=== PATIENT | female | born 1945 | race Caucasian/White ===

== ENCOUNTER 2020-06-08 13:04 | Inpatient (IN) | payer MEDICARE, BC ==
--- NOTE | 2020-06-08 13:46 | EDM.PDOC ---
ED HPI GENERAL MEDICAL PROBLEM - General Stated Complaint: SOB COPD Time Seen by Provider: 06/08/20 13:46 Source of Information: Reports: Patient History Limitations: Reports: No Limitations - History of Present Illness INITIAL COMMENTS - FREE TEXT/NARRATIVE: 74-year-old female who reports that she had some increased cough and chest congestion yesterday and she felt that it was most probably due to the humidity in the air and she seemed to rest okay last night but when she awoke this morning she was feeling increasing air hunger with diaphoresis. He also had some left-sided chest pain that was dull and did not seem to be exacerbated by either palpation or deep breathing. She had nausea with vomiting 1. She states that this feels very similar to when she had a left-sided pneumothorax on 2 other occasions. Her air hunger is not improving. It actually appears to be worsening with time. The pain in her chest is rated as 4/10. She has some mild nausea now. She has had no fevers or chills. She has had no nasal congestion. She had been eating and drinking normally yesterday. She also noted increased weakness today. No hemoptysis. No trouble swallowing. There are no other associated signs or s ymptoms. There are no other modifying factors. 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.) Left Upper Chest Pain Score (Numeric/FACES): 4 - Related Data Allergies Allergy/AdvReac Type Severity Reaction Status Date / Time hydralazine [Hydralazine] Allergy UNKNOWN Verified 05/10/16 16:57 prochlorperazine edisylate Allergy UNKNOWN Verified 05/10/16 16:57 [From Compazine] prochlorperazine maleate Allergy UNKNOWN Verified 05/10/16 16:57 [From Compazine] quinine [Quinine] Allergy UNKNOWN Verified 05/10/16 16:57 Home Meds: Home Meds Diltiazem [Cardizem CD] 240 mg PO DAILY 11/15/13 [History] Sertraline HCl [Zoloft] 200 mg PO DAILY 11/15/13 [History] Levothyroxine 225 mcg PO MOTUWETHFRSA 10/01/14 [History] Albuterol [Proair HFA] 2 puff INH Q4H PRN 05/10/16 [History] Budesonide/Formoterol [Symbicort 160-4.5 MCG] 2 puff INH BID 05/10/16 [History] Losartan [Cozaar] 100 mg PO DAILY 06/08/20 [History] Tiotropium [Spiriva HandiHaler] 18 mcg INH DAILY 06/08/20 [History] Vit C/E/Zn/Coppr/Lutein/Zeaxan [Preservision Areds 2 Softgel] 1 cap PO DAILY 06/08/20 [History] Past Medical History HEENT History: Reports: Cataract, Macular Degeneration, Other (See Below) Other HEENT History: WEARS EYEGLASSES. Bilateral cataracts Cardiovascular History: Reports: Hypertension Respiratory History: Reports: COPD, Pulmonary Fibrosis Other Respiratory History: COLLAPSED LUNG IN 2013, COLLAPSED LUNG 05/10/16 Genitourinary History: Reports: Urinary Incontinence, Other (See Below) Other Genitourinary History: Stress incontinence Psychiatric History: Reports: Depression Endocrine/Metabolic History: Reports: Hypothyroidism Oncologic (Cancer) History: Reports: Breast, Thyroid - Infectious Disease History Infectious Disease History: Reports: Chicken Pox, Measles, Mumps, Scarlet Fever - Past Surgical History HEENT Surgical History: Reports: Cataract Surgery Respiratory Surgical History: Reports: Other (See Below) (Left chest tubes 2) GI Surgical History: Reports: Appendectomy, Colon (Colectomy for diverticulitis) Female Surgical History: Reports: Hysterectomy, Mastectomy (Left mastectomy with breast reconstruction following this.) Endocrine Surgical History: Reports: Thyroidectomy Social & Family History - Family History HEENT: Reports: None Cardiac: Reports: Bypass Respiratory: Reports: COPD GI: Reports: Other (See Below) Other GI Family History: [place]-rectal cancer-brother : Reports: Other (See Below) Other Family History: Bladder cancer-brother OBGYN: Reports: None Oncologic: Reports: Bladder, Colon - Tobacco Use Smoking Status *Q: Unknown Ever Smoked (Nonsmoker.) - Alcohol Use Alcohol Use History: Yes Alcohol Use Frequency: Daily (1 drink daily.) - Living Situation & Occupation Occupation: Retired Social History Comment: She reports that 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 ED ROS GENERAL - Review of Systems Review Of Systems: See Below Constitutional: Reports: Malaise, Weakness, Diaphoresis HEENT: Reports: No Symptoms Respiratory: Reports: Shortness of Breath, Cough. Denies: Hemoptysis Cardiovascular: Reports: Chest Pain, Lightheadedness GI/Abdominal: Reports: Nausea, Vomiting (Vomiting 1) : Reports: No Symptoms Musculoskeletal: Reports: No Symptoms Skin: Reports: No Symptoms Neurological: Reports: No Symptoms Psychiatric: Reports: No Symptoms Hematologic/Lymphatic: Reports: No Symptoms Immunologic: Reports: No Symptoms ED EXAM, GENERAL - Physical Exam Exam: See Below Exam Limited By: No Limitations General Appearance: Alert, WD/WN, Moderate Distress (Appears to be somewhat dyspneic. Speaking in full sentences and is alert, appropriate and interactive.) Eye Exam: Bilateral Eye: EOMI, Normal Inspection, Other (Sclera are anicteric) Ears: Normal External Exam, Hearing Grossly Normal Ear Exam: Bilateral Ear: Auricle Normal Nose: Normal Inspection, Normal Mucosa, No Blood Throat/Mouth: Normal Inspection, Normal Oropharynx, Normal Voice, No Airway Compromise Head: Atraumatic, Normocephalic Neck: Normal Inspection, Supple, Non-Tender, Full Range of Motion Respiratory/Chest: Chest Non-Tender, Respiratory Distress (Mild dyspnea.), Decreased Breath Sounds (On the left side). No: Rales, Rhonchi Cardiovascular: Normal Peripheral Pulses, Regular Rate, Rhythm, No Gallop, No JVD Peripheral Pulses: 2+: Radial (L), Radial (R), Dorsalis Pedis (L), Dorsalis Pedis (R) GI/Abdominal: Normal Bowel Sounds, Soft, Non-Tender, No Mass Back Exam: Normal Inspection, Full Range of Motion Extremities: Normal Inspection, Normal Range of Motion, Non-Tender, No Pedal Edema, Normal Capillary Refill Neurological: Alert, CN II-XII Intact, Normal Cognition, No Motor/Sensory Deficits Psychiatric: Normal Affect Skin Exam: Warm, Dry, Intact, Normal Color, No Rash EKG INTERPRETATION EKG Date: 06/08/20 Time: 13:52 Rhythm: NSR Rate (Beats/Min): 102 [place]: Normal P-Wave: Enlarged QRS: Normal ST-T: Other (Nonspecific ST-T changes) QT: Prolonged (Slightly prolonged QTc.) Comparison: No Change (No change from an EKG performed on 05/10/2016.) Course - Vital Signs Last Recorded V/S: Last Vital Signs Temp 36.8 C 06/08/20 17:25 Pulse 84 06/08/20 18:35 Resp 16 06/08/20 18:35 BP 140/83 06/08/20 18:35 Pulse Ox 96 06/08/20 18:35 - Orders/Labs/Meds Orders: Active Orders 24 hr Category Date Time Status Chest 1V Frontal [CR] Stat Exams 06/08/20 14:06 Taken Sodium Chloride 0.9% [Saline Flush] Med 06/08/20 14:06 Active 10 ml FLUSH ASDIRECTED PRN Peripheral IV Insertion Adult [OM.PC] Routine Oth 06/08/20 14:06 Ordered EKG 12 Lead [EK] Routine Ther 06/08/20 14:06 Ordered Medication Orders Hydrocodone Bitart/Acetaminophen ([place] 325-5 Mg) 1 tab PO Q6H PRN PRN Reason: Pain Last Admin: 06/08/20 19:00 Dose: 1 tab Documented by: LOIDANLOR Albuterol (Ventolin Hfa) 0 gm INH Q4H PRN PRN Reason: Shortness of Breath Last Admin: 06/08/20 19:00 Dose: 2 puff Documented by: LOIDANLOR Enoxaparin Sodium (Lovenox) 40 mg SUBCUT Q24H VANNESA Last Admin: 06/08/20 18:48 Dose: 40 mg Documented by: LOIDANLOR Levothyroxine Sodium (Levothyroxine) 225 mcg PO MOTUWETHFRSA VANNESA Losartan Potassium (Cozaar) 100 mg PO DAILY VANNESA Non-Formulary Medication (Budesonide/Formoterol [Symbicort 160-4.5 Mcg]) 2 puff INH BID VANNESA Non-Formulary Medication (Diltiazem [Cardizem Cd]) 240 mg PO DAILY VANNESA Non-Formulary Medication (Vit C/E/Zn/Coppr/Lutein/Zeaxan [Preservision Areds 2 Softgel]) 1 cap PO DAILY VANNESA Ondansetron HCl (Zofran Odt) 4 mg PO Q6H PRN PRN Reason: Nausea/Vomiting Sertraline HCl (Zoloft) 200 mg PO DAILY VANNESA Sodium Chloride (Saline Flush) 10 ml FLUSH ASDIRECTED PRN PRN Reason: Keep Vein Open Tiotropium [place] (Spiriva Handihaler) 18 mcg INH DAILY VANNESA Labs: Laboratory Tests 06/08/20 06/08/20 06/08/20 Range/Units 14:45 14:45 14:45 WBC 7.8 (4.5-12.0) X10-3/uL RBC 4.52 (3.23-5.20) x10(6)uL Hgb 14.5 (11.5-15.5) g/dL Hct 45.3 (30.0-51.3) % MCV 100.2 H (80-96) fL MCH 32.0 (27.7-33.6) pg MCHC 32.0 L (32.2-35.4) g/dL RDW 14.0 (11.5-15.5) % Plt Count 378 H (125-369) X10(3)uL MPV 6.8 L (7.4-10.4) fL Neut % (Auto) 85.6 H (46-82) % Lymph % (Auto) 8.9 L (13-37) % [place] % (Auto) 4.7 (4-12) % Eos % (Auto) 0 L (1.0-5.0) % Baso % (Auto) 0 (0-2) % Neut # (Auto) 6.7 (1.6-8.3) # Lymph # (Auto) 0.7 (0.6-5.0) # Hayes # (Auto) 0.4 (0.0-1.3) # Eos # (Auto) 0.0 (0.0-0.8) # Baso # (Auto) 0.0 (0.0-0.2) # VBG pH (7.32-7.42) VBG pCO2 VBG pO2 VBG HCO3 mmol/L VBG O2 Saturation VBG Base Excess O2 Delivery Device Sodium 141 (135-145) mmol/L Potassium 3.9 (3.5-5.3) mmol/L Chloride 100 (100-110) mmol/L Carbon Dioxide 30 (21-32) mmol/L BUN 14 (7-18) mg/dL Creatinine 0.9 (0.55-1.02) mg/dL Est Cr Clr Drug Dosing TNP Estimated GFR (MDRD) > 60 (>60) BUN/Creatinine Ratio 15.6 (9-20) Glucose 103 (80-116) mg/dL Calcium 9.0 (8.6-10.2) mg/dL Magnesium 2.0 (1.8-2.5) mg/dL Total Bilirubin 0.6 (0.1-1.3) mg/dL AST 32 H (5-25) IU/L ALT 30 (12-36) U/L Alkaline Phosphatase 106 (56-112) IU/L Troponin I 9.9 (4.0-60.3) pg/mL Total Protein 7.7 (6.0-8.0) g/dL Albumin 3.7 (3.2-4.6) g/dL Globulin 4.0 g/dL Albumin/Globulin Ratio 0.9 08/24/20 Range/Units 14:45 WBC (4.5-12.0) X10-3/uL RBC (3.23-5.20) x10(6)uL Hgb (11.5-15.5) g/dL Hct (30.0-51.3) % MCV (80-96) fL MCH (27.7-33.6) pg MCHC (32.2-35.4) g/dL RDW (11.5-15.5) % Plt Count (125-369) X10(3)uL MPV (7.4-10.4) fL Neut % (Auto) (46-82) % Lymph % (Auto) (13-37) % [place] % (Auto) (4-12) % Eos % (Auto) (1.0-5.0) % Baso % (Auto) (0-2) % Neut # (Auto) (1.6-8.3) # Lymph # (Auto) (0.6-5.0) # Hayes # (Auto) (0.0-1.3) # Eos # (Auto) (0.0-0.8) # Baso # (Auto) (0.0-0.2) # VBG pH 7.374 (7.32-7.42) VBG pCO2 51.7 VBG pO2 35.8 VBG HCO3 30 mmol/L VBG O2 Saturation 66.0 VBG Base Excess 5.0 O2 Delivery Device Nasal cannula Sodium (135-145) mmol/L Potassium (3.5-5.3) mmol/L Chloride (100-110) mmol/L Carbon Dioxide (21-32) mmol/L BUN (7-18) mg/dL Creatinine (0.55-1.02) mg/dL Est Cr Clr Drug Dosing Estimated GFR (MDRD) (>60) BUN/Creatinine Ratio (9-20) Glucose (80-116) mg/dL Calcium (8.6-10.2) mg/dL Magnesium (1.8-2.5) mg/dL Total Bilirubin (0.1-1.3) mg/dL AST (5-25) IU/L ALT (12-36) U/L Alkaline Phosphatase (56-112) IU/L Troponin I (4.0-60.3) pg/mL Total Protein (6.0-8.0) g/dL Albumin (3.2-4.6) g/dL Globulin g/dL Albumin/Globulin Ratio Meds: Medications Generic Name Dose Route Start Last Admin Trade Name Freq PRN Reason Stop Dose Admin Hydrocodone Bitart/Acetaminophen 1 tab 06/08/20 18:44 06/08/20 19:00 [place] 325-5 Mg PO 1 tab Q6H PRN Administration Pain Albuterol 0 gm 06/08/20 17:23 06/08/20 19:00 Ventolin Hfa INH 2 puff Q4H PRN Administration Shortness of Breath Enoxaparin Sodium 40 mg 06/08/20 18:00 06/08/20 18:48 Lovenox SUBCUT 40 mg Q24H VANNESA Administration Levothyroxine Sodium 225 mcg 06/08/20 17:30 Levothyroxine PO MOTUWETHFRSA [facility] Losartan Potassium 100 mg 06/09/20 09:00 Cozaar PO DAILY VANNESA Non-Formulary Medication 2 puff 06/08/20 21:00 Budesonide/Formoterol [Symbicort 160-4.5 Mcg] INH BID VANNESA Non-Formulary Medication 240 mg 06/09/20 09:00 Diltiazem [Cardizem Cd] PO DAILY VANNESA Non-Formulary Medication 1 cap 06/09/20 09:00 Vit C/E/Zn/Coppr/Lutein/Zeaxan [Preservision Areds 2 Softgel] PO DAILY VANNESA Ondansetron HCl 4 mg 06/08/20 18:45 Zofran Odt PO Q6H PRN Nausea/Vomiting Sertraline HCl 200 mg 06/09/20 09:00 Zoloft PO DAILY VANNESA Sodium Chloride 10 ml 06/08/20 14:06 Saline Flush FLUSH ASDIRECTED PRN Keep Vein Open Tiotropium [place] 18 mcg 06/09/20 09:00 Spiriva Handihaler INH DAILY VANNESA Discontinued Medications Generic Name Dose Route Start Last Admin Trade Name Freq PRN Reason Stop Dose Admin Aspirin 324 mg 06/08/20 15:57 06/08/20 18:19 Aspirin PO 06/08/20 15:58 324 mg ONETIME ONE Administration Aspirin Confirm 06/08/20 18:17 06/08/20 18:25 Aspirin Administered 06/08/20 18:18 Not Given Dose 324 mg .ROUTE .[facility] - Radiology Interpretation Free Text/Narrative:: Portable chest x-ray showed a greater than 50% left-sided pneumothorax - Re-Assessments/Exams Free Text/Narrative Re-Assessment/Exam: 06/08/20 14:30: Portable chest x-ray showed a left-sided pneumothorax of greater than 50%. He is still hypertensive and slightly tachycardic. He is awake, alert and appropriate. Her O2 saturations are 95% on 2 L/m via nasal cannula oxygen. Called and discussed the patient's case with Dr. Nettles and he he will see the patient to place chest tube. I have discussed this with the patient and with her son. 06/08/20 15:40: Dr. Nettles has placed a small chest tube with resolution of the patient's pneumothorax. The patient is feeling much improved. Please see Dr. Nettles note in regards to the chest tube placement. I discussed the patient's case with Dr. Nettles and with Dr. Quinn. Dr. Nettles feels that the patient will need admission for continued observation status post chest tube placement. She'll also need serial cardiac enzymes as well. Dr. Quinn has agreed to admit the patient with Dr. Nettles consulting and following for the chest tube. The patient is in agreement with plan for admission. I will place interim orders and Dr. Quinn is coming to see the patient. Departure - Departure Time of Disposition: 15:45 Disposition: Refer to Observation Condition: Fair (Improved) Clinical Impression: Pneumothorax on left, Respiratory distress Chest pain Qualifiers: Chest pain type: unspecified Qualified Code(s): R07.9 - Chest pain, unspecified - Discharge Information Sepsis Event Note (ED) - Evaluation Sepsis Screening Result: No Definite Risk - Focused Exam Vital Signs: Vital Signs Temp Pulse Resp BP 06/08/20 13:25 36.0 C L 102 H 20 147/139 H - My Orders Last 24 Hours: My Active Orders 06/08/20 14:06 Chest 1V Frontal [CR] Stat Sodium Chloride 0.9% [Saline Flush] 10 ml FLUSH ASDIRECTED PRN Peripheral IV Insertion Adult [OM.PC] Routine EKG 12 Lead [EK] Routine - Assessment/Plan Last 24 Hours: My Active Orders 06/08/20 14:06 Chest 1V Frontal [CR] Stat Sodium Chloride 0.9% [Saline Flush] 10 ml FLUSH ASDIRECTED PRN Peripheral IV Insertion Adult [OM.PC] Routine EKG 12 Lead [EK] Routine
[2020-06-08] MEDS ORDERED: Sodium Chloride 0.9% 10 ML Syringe FLUSH PRN (14:06)
[2020-06-08] MEDS ORDERED: Aspirin 81 MG Tab.Chew PO ONE (15:57)
--- NOTE | 2020-06-08 17:05 | CR ---
INDICATION: Short of breath. CHEST ONE VIEW: An AP upright portable view view of the chest 06/08/20 was compared with 05/11/16 and 05/10/16 and revealed the heart to be near the upper limits of normal in size or minimally enlarged with a slightly prominent left ventricular contour. The right lung and pleural space appeared similar to the previous examination with some heavy markings in the mid lung field and lung base, likely fibrotic in nature. On the left, there is noted a large pneumothorax of at least 60% to 70% with atelectatic lung medially on the left. Overlying EKG leads are noted. IMPRESSION: Large pneumothorax on the left. Report was called to Dr. Saldana at 1515 hours. [facility]
--- NOTE | 2020-06-08 17:21 | CR ---
INDICATION: Post chest tube placement. CHEST ONE VIEW: A single portable AP upright view of the chest was obtained 06/08/20 1455 hours and compared with 1400 hours showing a chest tube in place with the lung almost completely reexpanded. Detail is relatively limited possibly due to some motion. There probably remains a degree of atelectatic change at the left lower lung field. IMPRESSION: Complete or almost complete reexpansion of the left lung is suggested post chest tube placement. MTDD
--- NOTE | 2020-06-08 17:31 | PCM.HP.2 ---
H&P History of Present Illness - General Date of Service: 06/08/20 Admit Problem/Dx: Admission Diagnosis/Problem Admission Diagnosis/Problem Pneumothorax on left Source of Information: Patient, Old Records History Limitations: Reports: No Limitations - History of Present Illness Initial Comments - Free Text/Narative: This is a 74-year-old female patient who lives alone with COPD and asthma. She states she had this morning and she was very short of breath and air hungry. She had left lateral chest pain under her breast. She came to the ER was found to have a pneumothorax and had a chest tube placed by the surgeon. She feels much better now. She did have some sweating with this and vomited 2. She says she has a daily cough with whitish sputum all the time and has not changed. She denies fevers, chills, runny nose, sore throat, chest pain. She is had 2 previous pneumothorax there were spontaneous. Left Upper Chest Pain Score (Numeric/FACES): 4 - Related Data Allergies/Adverse Reactions: Allergies Allergy/AdvReac Type Severity Reaction Status Date / Time hydralazine [Hydralazine] Allergy UNKNOWN Verified 05/10/16 16:57 prochlorperazine edisylate Allergy UNKNOWN Verified 05/10/16 16:57 [From Compazine] prochlorperazine maleate Allergy UNKNOWN Verified 05/10/16 16:57 [From Compazine] quinine [Quinine] Allergy UNKNOWN Verified 05/10/16 16:57 Home Medications: Home Meds Diltiazem [Cardizem CD] 240 mg PO DAILY 11/15/13 [History] Sertraline HCl [Zoloft] 200 mg PO DAILY 11/15/13 [History] Levothyroxine 225 mcg PO MOTUWETHFRSA 10/01/14 [History] Albuterol [Proair HFA] 2 puff INH Q4H PRN 05/10/16 [History] Budesonide/Formoterol [Symbicort 160-4.5 MCG] 2 puff INH BID 05/10/16 [History] Losartan [Cozaar] 100 mg PO DAILY 06/08/20 [History] Tiotropium [Spiriva HandiHaler] 18 mcg INH DAILY 06/08/20 [History] Vit C/E/Zn/Coppr/Lutein/Zeaxan [Preservision Areds 2 Softgel] 1 cap PO DAILY 06/08/20 [History] Past Medical History HEENT History: Reports: Cataract, Macular Degeneration, Other (See Below) Other HEENT History: Wears glasses. Cardiovascular History: Reports: Hypertension Respiratory History: Reports: Asthma, COPD, Pulmonary Fibrosis Other Respiratory History: Collapsed lung 2013, 2015, 2019. Genitourinary History: Reports: Urinary Incontinence, Other (See Below) Other Genitourinary History: Stress incontinence. 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 GI Surgical History: Reports: Appendectomy, Other (See Below) Other GI Surgeries/Procedures: Distal colon removed due to diverticulitis. Female Surgical History: Reports: Hysterectomy, Mastectomy, Other (See Below) Other Female Surgeries/Procedures: Left mastectomy with reconstruction. Endocrine Surgical History: Reports: Thyroidectomy Social & Family History - Family History Family Medical History: Unobtainable HEENT: Reports: None Cardiac: Reports: Bypass Respiratory: Reports: COPD GI: Reports: Other (See Below) Other GI Family History: [place]-rectal cancer, brother. : Reports: Other (See Below) Other Family History: Bladder cancer, brother. OBGYN: Reports: None Oncologic: Reports: Bladder, Colon - Tobacco Use Smoking Status *Q: Never Smoker - Caffeine Use Caffeine Use: Reports: Coffee, Tea - Alcohol Use Days Per Week of Alcohol Use: 7 Number of Drinks Per Day: 1 Total Drinks Per Week: 7 - Recreational Drug Use Recreational Drug Use: No H&P Review of Systems - Review of Systems: Review Of Systems: See Below General: Reports: No Symptoms HEENT: Reports: No Symptoms Pulmonary: Reports: Shortness of Breath, Cough, Sputum Cardiovascular: Reports: Chest Pain Gastrointestinal: Reports: Vomiting. Denies: Constipation, Diarrhea Genitourinary: Reports: No Symptoms Musculoskeletal: Reports: No Symptoms Skin: Reports: No Symptoms Psychiatric: Reports: No Symptoms Neurological: Reports: No Symptoms Hematologic/Lymphatic: Reports: No Symptoms Immunologic: Reports: No Symptoms Exam - Exam Exam: See Below - Vital Signs Vital Signs: Last Vital Signs Temp 96.8 F L 06/08/20 13:25 Pulse 102 H 06/08/20 13:25 Resp 20 06/08/20 13:25 BP 147/139 H 06/08/20 13:25 Pulse Ox Weight: 176 lb - Exam Quality Assessment: Supplemental Oxygen General: Alert, Oriented, Cooperative HEENT: PERRLA, Hearing Intact, Posterior Pharynx Clear, TMs Clear Neck: Supple, Trachea Midline Lungs: Clear to Auscultation, Normal Respiratory Effort, Other (Chest to left side in place). No: Crackles, Rales, Rhonchi Cardiovascular: Regular Rate, Regular Rhythm. No: Systolic Murmur GI/Abdominal Exam: Normal Bowel Sounds, Soft, Non-Tender, No Distention Extremities: Normal Inspection, Non-Tender, No Pedal Edema Skin: Warm, Dry, Intact Neuro Extensive - Mental Status: Alert, Oriented x3, Normal Mood/Affect, Normal Cognition Psychiatric: Alert, Normal Affect, Normal Mood - Patient Data Lab Results Last 24 hrs: Laboratory Results - last 24 hr 06/08/20 06/08/20 06/08/20 Range/Units 14:45 14:45 14:45 WBC 7.8 (4.5-12.0) X10-3/uL RBC 4.52 (3.23-5.20) x10(6)uL Hgb 14.5 (11.5-15.5) g/dL Hct 45.3 (30.0-51.3) % MCV 100.2 H (80-96) fL MCH 32.0 (27.7-33.6) pg MCHC 32.0 L (32.2-35.4) g/dL RDW 14.0 (11.5-15.5) % Plt Count 378 H (125-369) X10(3)uL MPV 6.8 L (7.4-10.4) fL Neut % (Auto) 85.6 H (46-82) % Lymph % (Auto) 8.9 L (13-37) % [place] % (Auto) 4.7 (4-12) % Eos % (Auto) 0 L (1.0-5.0) % Baso % (Auto) 0 (0-2) % Neut # (Auto) 6.7 (1.6-8.3) # Lymph # (Auto) 0.7 (0.6-5.0) # [place] # (Auto) 0.4 (0.0-1.3) # Eos # (Auto) 0.0 (0.0-0.8) # Baso # (Auto) 0.0 (0.0-0.2) # VBG pH (7.32-7.42) VBG pCO2 VBG pO2 VBG HCO3 mmol/L VBG O2 Saturation VBG Base Excess O2 Delivery Device Sodium 141 (135-145) mmol/L Potassium 3.9 (3.5-5.3) mmol/L Chloride 100 (100-110) mmol/L Carbon Dioxide 30 (21-32) mmol/L BUN 14 (7-18) mg/dL Creatinine 0.9 (0.55-1.02) mg/dL Est Cr Clr Drug Dosing TNP Estimated GFR (MDRD) > 60 (>60) BUN/Creatinine Ratio 15.6 (9-20) Glucose 103 (80-116) mg/dL Calcium 9.0 (8.6-10.2) mg/dL Magnesium 2.0 (1.8-2.5) mg/dL Total Bilirubin 0.6 (0.1-1.3) mg/dL AST 32 H (5-25) IU/L ALT 30 (12-36) U/L Alkaline Phosphatase 106 (56-112) IU/L Troponin I 9.9 (4.0-60.3) pg/mL Total Protein 7.7 (6.0-8.0) g/dL Albumin 3.7 (3.2-4.6) g/dL Globulin 4.0 g/dL Albumin/Globulin Ratio 0.9 SARS Virus RNA (PCR) (NEGATIVE) 06/08/20 06/08/20 Range/Units 14:45 16:00 WBC (4.5-12.0) X10-3/uL RBC (3.23-5.20) x10(6)uL Hgb (11.5-15.5) g/dL Hct (30.0-51.3) % MCV (80-96) fL MCH (27.7-33.6) pg MCHC (32.2-35.4) g/dL RDW (11.5-15.5) % Plt Count (125-369) X10(3)uL MPV (7.4-10.4) fL Neut % (Auto) (46-82) % Lymph % (Auto) (13-37) % [place] % (Auto) (4-12) % Eos % (Auto) (1.0-5.0) % Baso % (Auto) (0-2) % Neut # (Auto) (1.6-8.3) # Lymph # (Auto) (0.6-5.0) # [place] # (Auto) (0.0-1.3) # Eos # (Auto) (0.0-0.8) # Baso # (Auto) (0.0-0.2) # VBG pH 7.374 (7.32-7.42) VBG pCO2 51.7 VBG pO2 35.8 VBG HCO3 30 mmol/L VBG O2 Saturation 66.0 VBG Base Excess 5.0 O2 Delivery Device Nasal cannula Sodium (135-145) mmol/L Potassium (3.5-5.3) mmol/L Chloride (100-110) mmol/L Carbon Dioxide (21-32) mmol/L BUN (7-18) mg/dL Creatinine (0.55-1.02) mg/dL Est Cr Clr Drug Dosing Estimated GFR (MDRD) (>60) BUN/Creatinine Ratio (9-20) Glucose (80-116) mg/dL Calcium (8.6-10.2) mg/dL Magnesium (1.8-2.5) mg/dL Total Bilirubin (0.1-1.3) mg/dL AST (5-25) IU/L ALT (12-36) U/L Alkaline Phosphatase (56-112) IU/L Troponin I (4.0-60.3) pg/mL Total Protein (6.0-8.0) g/dL Albumin (3.2-4.6) g/dL Globulin g/dL Albumin/Globulin Ratio SARS Virus RNA (PCR) Negative (NEGATIVE) Result Diagrams: 06/08/20 14:45 06/08/20 14:45 Sepsis Event Note - Evaluation Sepsis Screening Result: No Definite Risk - Focused Exam Vital Signs: Vital Signs Temp Pulse Resp BP 06/08/20 13:25 96.8 F L 102 H 20 147/139 H - Problem List (1) Asthma SNOMED Code(s): 871473665 ICD Code: J45.909 - UNSPECIFIED ASTHMA, UNCOMPLICATED Status: Acute Current Visit: Yes (2) Palliative care status SNOMED Code(s): 812323707 ICD Code: Z51.5 - ENCOUNTER FOR PALLIATIVE CARE Status: Acute Current Visit: Yes (3) Chest tube in place SNOMED Code(s): 774055795 ICD Code: Z96.89 - PRESENCE OF OTHER SPECIFIED FUNCTIONAL IMPLANTS Status: Acute Current Visit: Yes (4) COPD (chronic obstructive pulmonary disease) SNOMED Code(s): 33770522 ICD Code: J44.9 - CHRONIC OBSTRUCTIVE PULMONARY DISEASE, UNSPECIFIED Status: Acute Current Visit: No Problem Details: Continue management of COPD w Pulmonary Fibrosis Qualifiers: COPD type: unspecified COPD Qualified Code(s): J44.9 - Chronic obstructive pulmonary disease, unspecified (5) Pneumothorax SNOMED Code(s): 92907824 ICD Code: J93.9 - PNEUMOTHORAX, UNSPECIFIED Status: Acute Current Visit: No Problem Details: Post op management of chest tube Problem List Initiated/Reviewed/Updated: Yes Orders Last 24hrs: Active Orders 24 hr Category Date Time Status Admission Status [Patient Status] [ADT] Routine ADT 06/08/20 15:42 Active Patient Status Manage Transfer [TRANSFER] Routine ADT 06/08/20 16:05 Active Cardiac Monitoring [RC] .As Directed Care 06/08/20 15:42 Active Height and Weight [RC] UPON Care 06/08/20 16:02 Active Intake and Output [RC] QSHIFT Care 06/08/20 16:02 Active Oxygen Therapy, ED [RC] ASDIRECTED Care 06/08/20 16:02 Active RT Post Treatment Assessment [RC] Click to Edit Care 06/08/20 17:24 Active Vital Signs [RC] Q4H Care 06/08/20 16:02 Active Cardiac Diet [Heart Healthy Diet] [DIET] Diet 06/08/20 Dinner Active Chest 1V Frontal [CR] Stat Exams 06/08/20 14:06 Taken Albuterol [Ventolin HFA] Med 06/08/20 17:23 Ordered DOSE gm INH Q4H PRN Budesonide/Formoterol [Symbicort 160-4.5 MCG] Med 06/08/20 21:00 Ordered 2 puff INH BID Diltiazem [Cardizem CD] Med 06/09/20 09:00 Ordered 240 mg PO DAILY Levothyroxine Med 06/08/20 17:30 Ordered 225 mcg PO MOTUWETHFRSA Losartan [Cozaar] Med 06/09/20 09:00 Ordered 100 mg PO DAILY Sertraline [Zoloft] Med 06/09/20 09:00 Ordered 200 mg PO DAILY Sodium Chloride 0.9% [Saline Flush] Med 06/08/20 14:06 Active 10 ml FLUSH ASDIRECTED PRN Tiotropium [Spiriva HandiHaler] Med 06/09/20 09:00 Ordered 18 mcg INH DAILY Vit C/E/Zn/Coppr/Lutein/Zeaxan [Preservision Areds 2 Med 06/09/20 09:00 Ordered Softgel] 1 cap PO DAILY Peripheral IV Insertion Adult [OM.PC] Routine Oth 06/08/20 14:06 Ordered Resuscitation Status Routine Resus Stat 06/08/20 16:02 Ordered EKG 12 Lead [EK] Routine Ther 06/08/20 14:06 Ordered Medication Orders Albuterol (Ventolin Hfa) gm INH Q4H PRN PRN Reason: Shortness of Breath Levothyroxine Sodium (Levothyroxine) 225 mcg PO MOTUWETHFRSA VANNESA Losartan Potassium (Cozaar) 100 mg PO DAILY VANNESA Non-Formulary Medication (Budesonide/Formoterol [Symbicort 160-4.5 Mcg]) 2 puff INH BID VANNESA Non-Formulary Medication (Diltiazem [Cardizem Cd]) 240 mg PO DAILY VANNESA Non-Formulary Medication (Vit C/E/Zn/Coppr/Lutein/Zeaxan [Preservision Areds 2 Softgel]) 1 cap PO DAILY VANNESA Sertraline HCl (Zoloft) 200 mg PO DAILY VANNESA Sodium Chloride (Saline Flush) 10 ml FLUSH ASDIRECTED PRN PRN Reason: Keep Vein Open Tiotropium [place] (Spiriva Handihaler) 18 mcg INH DAILY VANNESA Assessment/Plan Comment:: 1. Admit for observation and chest 2. Regular diet. 3. Continue her current medications 4. SCD/Lovenox for VTE prophylaxis 5. The patient wishes to be a DO NOT RESUSCITATE DO NOT INTUBATE 6. Up with assist 7. No labs for the a.m. 8. Dr. Brink has been consult that and has seen her already. - Mortality Measure Prognosis:: Good
--- NOTE | 2020-06-08 17:32 | ER ---
DATE OF PROCEDURE: 06/08/2020 INDICATION: This 74-year-old female presented to the emergency room with symptoms of shortness of breath and some left-sided chest pain. She was noted on chest x-ray to have developed a spontaneous left pneumothorax. Her lungs appeared to be collapsed by greater than 50%. No pleura fluid was noted on the chest x-ray. This patient does have a history of COPD and this is the third episode of spontaneous left pneumothorax that she has had. She does state that after her last episode she did discuss the possibility of surgery to remove the bleb but shows not to undergo that procedure at that time. Examination shows an alert, elderly female. She is in mild shortness of breath with supplemental oxygen. I had recommended to the patient that we proceed with placement of a small chest tube through an anterior approach and connected this to a Heimlich valve. The patient agreed to this stating that this is what she had done the last time this happened and that worked well for her. DESCRIPTION OF PROCEDURE: An Arrow pneumothorax kit was selected and the left anterior chest was then sterilely prepped and draped. Local infiltration of the skin and the deeper chest wall was then carried out to achieve good analgesia. A small incision was made and then the Arrow pneumothorax kit catheter was advanced over a needle through the anterior chest into the apex of the left pleural space. After this was inserted and the needle was removed, this was immediately connected to a Heimlich valve and it was noted that with breathing the Heimlich valve worked as expected. A chest x-ray was obtained showing the tube located in the left pleural space and good expansion of the lung already. The tube was then secured to the skin with the nylon suture. Connections are all secured and the tube was dressed with a dressing taped in place. Because of the patient's history of COPD, she will be admitted overnight for observation and we will obtain a chest x-ray in the morning for a followup of her pneumothorax. /[id number] ORION/MARY
[2020-06-08] MEDS ORDERED: Aspirin 81 MG Tab.Chew ONE (18:17)
[2020-06-08] MEDS ORDERED: Ondansetron 4 MG Tab.DIS PO PRN (18:45)
[2020-06-08] MEDS: Enoxaparin 40 MG/0.4 ML Syringe SUBCUT SCH (18:48)
[2020-06-08] MEDS: Albuterol 8 GM Inhaler INH PRN (19:00)
[2020-06-08] MEDS: Acetaminophen/HYDROcodone 325-5 MG Tab PO PRN (19:00)
[2020-06-08] MEDS ORDERED: Levothyroxine 25 MCG Tab PO SCH (20:30)
[2020-06-08] MEDS: BUDESONIDE INH SCH (20:39)
[2020-06-08] MEDS: FORMOTEROL INH SCH (20:39)
[2020-06-09] MEDS: Acetaminophen/HYDROcodone 325-5 MG Tab PO PRN ×3 (07:16→20:41)
--- NOTE | 2020-06-09 07:51 | PCM.PN ---
- General Info Date of Service: 06/09/20 - Review of Systems HEENT: Reports: No Symptoms Pulmonary: Reports: Other (mild pain left lateral chest wall). Denies: Shortness of Breath - Patient Data Vitals - Most Recent: Last Vital Signs Temp 98.2 F 06/09/20 04:00 Pulse 75 06/09/20 04:00 Resp 16 06/09/20 04:00 BP 123/80 06/09/20 04:00 Pulse Ox 96 06/09/20 04:00 Weight - Most Recent: 176 lb I&O - Last 24 Hours: Intake & Output 06/08/20 06/09/20 06/09/20 22:59 06:59 14:59 Intake Total 550 300 Output Total 300 Balance 250 300 Lab Results Last 24 Hours: Laboratory Results - last 24 hr 06/08/20 06/08/20 06/08/20 Range/Units 14:45 14:45 14:45 WBC 7.8 (4.5-12.0) X10-3/uL RBC 4.52 (3.23-5.20) x10(6)uL Hgb 14.5 (11.5-15.5) g/dL Hct 45.3 (30.0-51.3) % MCV 100.2 H (80-96) fL MCH 32.0 (27.7-33.6) pg MCHC 32.0 L (32.2-35.4) g/dL RDW 14.0 (11.5-15.5) % Plt Count 378 H (125-369) X10(3)uL MPV 6.8 L (7.4-10.4) fL Neut % (Auto) 85.6 H (46-82) % Lymph % (Auto) 8.9 L (13-37) % [place] % (Auto) 4.7 (4-12) % Eos % (Auto) 0 L (1.0-5.0) % Baso % (Auto) 0 (0-2) % Neut # (Auto) 6.7 (1.6-8.3) # Lymph # (Auto) 0.7 (0.6-5.0) # [place] # (Auto) 0.4 (0.0-1.3) # Eos # (Auto) 0.0 (0.0-0.8) # Baso # (Auto) 0.0 (0.0-0.2) # VBG pH (7.32-7.42) VBG pCO2 VBG pO2 VBG HCO3 mmol/L VBG O2 Saturation VBG Base Excess O2 Delivery Device Sodium 141 (135-145) mmol/L Potassium 3.9 (3.5-5.3) mmol/L Chloride 100 (100-110) mmol/L Carbon Dioxide 30 (21-32) mmol/L BUN 14 (7-18) mg/dL Creatinine 0.9 (0.55-1.02) mg/dL Est Cr Clr Drug Dosing TNP Estimated GFR (MDRD) > 60 (>60) BUN/Creatinine Ratio 15.6 (9-20) Glucose 103 (80-116) mg/dL Calcium 9.0 (8.6-10.2) mg/dL Magnesium 2.0 (1.8-2.5) mg/dL Total Bilirubin 0.6 (0.1-1.3) mg/dL AST 32 H (5-25) IU/L ALT 30 (12-36) U/L Alkaline Phosphatase 106 (56-112) IU/L Troponin I 9.9 (4.0-60.3) pg/mL Total Protein 7.7 (6.0-8.0) g/dL Albumin 3.7 (3.2-4.6) g/dL Globulin 4.0 g/dL Albumin/Globulin Ratio 0.9 SARS Virus RNA (PCR) (NEGATIVE) 06/08/20 06/08/20 Range/Units 14:45 16:00 WBC (4.5-12.0) X10-3/uL RBC (3.23-5.20) x10(6)uL Hgb (11.5-15.5) g/dL Hct (30.0-51.3) % MCV (80-96) fL MCH (27.7-33.6) pg MCHC (32.2-35.4) g/dL RDW (11.5-15.5) % Plt Count (125-369) X10(3)uL MPV (7.4-10.4) fL Neut % (Auto) (46-82) % Lymph % (Auto) (13-37) % [place] % (Auto) (4-12) % Eos % (Auto) (1.0-5.0) % Baso % (Auto) (0-2) % Neut # (Auto) (1.6-8.3) # Lymph # (Auto) (0.6-5.0) # [place] # (Auto) (0.0-1.3) # Eos # (Auto) (0.0-0.8) # Baso # (Auto) (0.0-0.2) # VBG pH 7.374 (7.32-7.42) VBG pCO2 51.7 VBG pO2 35.8 VBG HCO3 30 mmol/L VBG O2 Saturation 66.0 VBG Base Excess 5.0 O2 Delivery Device Nasal cannula Sodium (135-145) mmol/L Potassium (3.5-5.3) mmol/L Chloride (100-110) mmol/L Carbon Dioxide (21-32) mmol/L BUN (7-18) mg/dL Creatinine (0.55-1.02) mg/dL Est Cr Clr Drug Dosing Estimated GFR (MDRD) (>60) BUN/Creatinine Ratio (9-20) Glucose (80-116) mg/dL Calcium (8.6-10.2) mg/dL Magnesium (1.8-2.5) mg/dL Total Bilirubin (0.1-1.3) mg/dL AST (5-25) IU/L ALT (12-36) U/L Alkaline Phosphatase (56-112) IU/L Troponin I (4.0-60.3) pg/mL Total Protein (6.0-8.0) g/dL Albumin (3.2-4.6) g/dL Globulin g/dL Albumin/Globulin Ratio SARS Virus RNA (PCR) Negative (NEGATIVE) Med Orders - Current: Current Medications Hydrocodone Bitart/Acetaminophen ([place] 325-5 Mg) 1 tab PO Q6H PRN PRN Reason: Pain Last Admin: 06/09/20 07:16 Dose: 1 tab Documented by: Albuterol (Ventolin Hfa) 0 gm INH Q4H PRN PRN Reason: Shortness of Breath Last Admin: 06/08/20 19:00 Dose: 2 puff Documented by: Diltiazem HCl (Dilacor Xr) 240 mg PO DAILY VANNESA Enoxaparin Sodium (Lovenox) 40 mg SUBCUT Q24H [facility] Last Admin: 06/08/20 18:48 Dose: 40 mg Documented by: Levothyroxine Sodium (Levothyroxine) 25 mcg PO [email or web address] [facility] Last Admin: 06/08/20 20:39 Dose: 25 mcg Documented by: Levothyroxine Sodium (Levothyroxine) 200 mcg PO [email or web address] [facility] Last Admin: 06/08/20 20:39 Dose: 200 mcg Documented by: Losartan Potassium (Cozaar) 100 mg PO DAILY [facility] Budesonide/Formoterol ( Symbicort) 160-4.5 Mcg Own Med 0 puff INH BID [facility] Last Admin: 06/08/20 20:39 Dose: 2 puff Documented by: Non-Formulary Medication (Vit C/E/Zn/Coppr/Lutein/Zeaxan [Preservision Areds 2 Softgel]) 1 cap PO DAILY [facility] Ondansetron HCl (Zofran Odt) 4 mg PO Q6H PRN PRN Reason: Nausea/Vomiting Sertraline HCl (Zoloft) 200 mg PO DAILY [facility] Sodium Chloride (Saline Flush) 10 ml FLUSH ASDIRECTED PRN PRN Reason: Keep Vein Open Tiotropium [place] (Spiriva Handihaler) 18 mcg INH DAILY [facility] Discontinued Medications Aspirin (Aspirin) 324 mg PO ONETIME ONE Stop: 06/08/20 15:58 Last Admin: 06/08/20 18:19 Dose: 324 mg Documented by: Aspirin (Aspirin) Confirm Administered Dose 324 mg .ROUTE .STK-MED ONE Stop: 06/08/20 18:18 Last Admin: 06/08/20 18:25 Dose: Not Given Documented by: - Exam General: Alert, Oriented Lungs: Normal Respiratory Effort, Other (Heimlich Valve still moving with deep breathing - CXR shows L lung fully expanded) Sepsis Event Note - Evaluation Sepsis Screening Result: No Definite Risk - Focused Exam Vital Signs: Vital Signs Temp Pulse Resp BP Pulse Ox 06/09/20 04:00 98.2 F 75 16 123/80 96 06/09/20 00:00 98.1 F 78 16 131/78 97 - Problem List Review Problem List Initiated/Reviewed/Updated: Yes - My Orders Last 24 Hours: My Active Orders 06/09/20 07:30 Chest 2V [CR] Timed - Assessment Assessment:: Left Spontaneous Pneumothorax - expanded with CT but still appears to be air leak - Plan Plan:: Will leave CT in and open to Heimlich Valve Repeat CXR tomorrow
[2020-06-09] MEDS: FORMOTEROL INH SCH ×2 (08:09→20:37)
[2020-06-09] MEDS: BUDESONIDE INH SCH ×2 (08:09→20:37)
[2020-06-09] MEDS: Tiotropium Inhaler 18 MCG Inhalation Powder Cap Kit of 5 INH SCH (08:10)
[2020-06-09] MEDS: Losartan 100 MG Tab PO SCH (08:11)
[2020-06-09] MEDS: Diltiazem 240 MG Cap.ER PO SCH (08:11)
[2020-06-09] MEDS: Sertraline 100 MG Tab PO SCH (08:12)
--- NOTE | 2020-06-09 08:35 | PCM.PN ---
- General Info Date of Service: 06/09/20 Admission Dx/Problem (Free Text): Patient states she has a little pain in the left chest. She denies any shortness of breath, cough, wheezing, fevers. - Patient Data Vitals - Most Recent: Last Vital Signs Temp 98.2 F 06/09/20 04:00 Pulse 75 06/09/20 04:00 Resp 16 06/09/20 04:00 BP 145/91 H 06/09/20 08:11 Pulse Ox 96 06/09/20 04:00 Weight - Most Recent: 176 lb I&O - Last 24 Hours: Intake & Output 06/08/20 06/09/20 06/09/20 22:59 06:59 14:59 Intake Total 550 300 Output Total 300 Balance 250 300 Lab Results Last 24 Hours: Laboratory Results - last 24 hr 06/08/20 06/08/20 06/08/20 Range/Units 14:45 14:45 14:45 WBC 7.8 (4.5-12.0) X10-3/uL RBC 4.52 (3.23-5.20) x10(6)uL Hgb 14.5 (11.5-15.5) g/dL Hct 45.3 (30.0-51.3) % MCV 100.2 H (80-96) fL MCH 32.0 (27.7-33.6) pg MCHC 32.0 L (32.2-35.4) g/dL RDW 14.0 (11.5-15.5) % Plt Count 378 H (125-369) X10(3)uL MPV 6.8 L (7.4-10.4) fL Neut % (Auto) 85.6 H (46-82) % Lymph % (Auto) 8.9 L (13-37) % [place] % (Auto) 4.7 (4-12) % Eos % (Auto) 0 L (1.0-5.0) % Baso % (Auto) 0 (0-2) % Neut # (Auto) 6.7 (1.6-8.3) # Lymph # (Auto) 0.7 (0.6-5.0) # [place] # (Auto) 0.4 (0.0-1.3) # Eos # (Auto) 0.0 (0.0-0.8) # Baso # (Auto) 0.0 (0.0-0.2) # VBG pH (7.32-7.42) VBG pCO2 VBG pO2 VBG HCO3 mmol/L VBG O2 Saturation VBG Base Excess O2 Delivery Device Sodium 141 (135-145) mmol/L Potassium 3.9 (3.5-5.3) mmol/L Chloride 100 (100-110) mmol/L Carbon Dioxide 30 (21-32) mmol/L BUN 14 (7-18) mg/dL Creatinine 0.9 (0.55-1.02) mg/dL Est Cr Clr Drug Dosing TNP Estimated GFR (MDRD) > 60 (>60) BUN/Creatinine Ratio 15.6 (9-20) Glucose 103 (80-116) mg/dL Calcium 9.0 (8.6-10.2) mg/dL Magnesium 2.0 (1.8-2.5) mg/dL Total Bilirubin 0.6 (0.1-1.3) mg/dL AST 32 H (5-25) IU/L ALT 30 (12-36) U/L Alkaline Phosphatase 106 (56-112) IU/L Troponin I 9.9 (4.0-60.3) pg/mL Total Protein 7.7 (6.0-8.0) g/dL Albumin 3.7 (3.2-4.6) g/dL Globulin 4.0 g/dL Albumin/Globulin Ratio 0.9 SARS Virus RNA (PCR) (NEGATIVE) 06/08/20 06/08/20 Range/Units 14:45 16:00 WBC (4.5-12.0) X10-3/uL RBC (3.23-5.20) x10(6)uL Hgb (11.5-15.5) g/dL Hct (30.0-51.3) % MCV (80-96) fL MCH (27.7-33.6) pg MCHC (32.2-35.4) g/dL RDW (11.5-15.5) % Plt Count (125-369) X10(3)uL MPV (7.4-10.4) fL Neut % (Auto) (46-82) % Lymph % (Auto) (13-37) % [place] % (Auto) (4-12) % Eos % (Auto) (1.0-5.0) % Baso % (Auto) (0-2) % Neut # (Auto) (1.6-8.3) # Lymph # (Auto) (0.6-5.0) # [place] # (Auto) (0.0-1.3) # Eos # (Auto) (0.0-0.8) # Baso # (Auto) (0.0-0.2) # VBG pH 7.374 (7.32-7.42) VBG pCO2 51.7 VBG pO2 35.8 VBG HCO3 30 mmol/L VBG O2 Saturation 66.0 VBG Base Excess 5.0 O2 Delivery Device Nasal cannula Sodium (135-145) mmol/L Potassium (3.5-5.3) mmol/L Chloride (100-110) mmol/L Carbon Dioxide (21-32) mmol/L BUN (7-18) mg/dL Creatinine (0.55-1.02) mg/dL Est Cr Clr Drug Dosing Estimated GFR (MDRD) (>60) BUN/Creatinine Ratio (9-20) Glucose (80-116) mg/dL Calcium (8.6-10.2) mg/dL Magnesium (1.8-2.5) mg/dL Total Bilirubin (0.1-1.3) mg/dL AST (5-25) IU/L ALT (12-36) U/L Alkaline Phosphatase (56-112) IU/L Troponin I (4.0-60.3) pg/mL Total Protein (6.0-8.0) g/dL Albumin (3.2-4.6) g/dL Globulin g/dL Albumin/Globulin Ratio SARS Virus RNA (PCR) Negative (NEGATIVE) Med Orders - Current: Current Medications Hydrocodone Bitart/Acetaminophen ([place] 325-5 Mg) 1 tab PO Q6H PRN PRN Reason: Pain Last Admin: 06/09/20 07:16 Dose: 1 tab Documented by: Albuterol (Ventolin Hfa) 0 gm INH Q4H PRN PRN Reason: Shortness of Breath Last Admin: 06/08/20 19:00 Dose: 2 puff Documented by: Diltiazem HCl (Dilacor Xr) 240 mg PO DAILY [facility] Last Admin: 06/09/20 08:11 Dose: 240 mg Documented by: Enoxaparin Sodium (Lovenox) 40 mg SUBCUT Q24H [facility] Last Admin: 06/08/20 18:48 Dose: 40 mg Documented by: Levothyroxine Sodium (Levothyroxine) 25 mcg PO MoTuWeThFrSa@1730 [facility] Last Admin: 06/08/20 20:39 Dose: 25 mcg Documented by: Levothyroxine Sodium (Levothyroxine) 200 mcg PO MoTuWeThFrSa@1730 [facility] Last Admin: 06/08/20 20:39 Dose: 200 mcg Documented by: Losartan Potassium (Cozaar) 100 mg PO DAILY [facility] Last Admin: 06/09/20 08:11 Dose: 100 mg Documented by: Budesonide/Formoterol ( Symbicort) 160-4.5 Mcg Own Med 0 puff INH BID [facility] Last Admin: 06/09/20 08:09 Dose: 2 puff Documented by: Non-Formulary Medication (Vit C/E/Zn/Coppr/Lutein/Zeaxan [Preservision Areds 2 Softgel]) 1 cap PO DAILY [facility] Ondansetron HCl (Zofran Odt) 4 mg PO Q6H PRN PRN Reason: Nausea/Vomiting Sertraline HCl (Zoloft) 200 mg PO DAILY [facility] Last Admin: 06/09/20 08:12 Dose: 200 mg Documented by: Sodium Chloride (Saline Flush) 10 ml FLUSH ASDIRECTED PRN PRN Reason: Keep Vein Open Tiotropium [place] (Spiriva Handihaler) 18 mcg INH DAILY [facility] Last Admin: 06/09/20 08:10 Dose: 18 mcg Documented by: Discontinued Medications Aspirin (Aspirin) 324 mg PO ONETIME ONE Stop: 06/08/20 15:58 Last Admin: 06/08/20 18:19 Dose: 324 mg Documented by: Aspirin (Aspirin) Confirm Administered Dose 324 mg .ROUTE .STK-MED ONE Stop: 06/08/20 18:18 Last Admin: 06/08/20 18:25 Dose: Not Given Documented by: - Exam General: Alert, Oriented, Cooperative Lungs: Clear to Auscultation, Normal Respiratory Effort. No: Decreased Breath Sounds, Crackles, Rales, Rhonchi Cardiovascular: Regular Rate, Regular Rhythm, No Murmurs Sepsis Event Note - Evaluation Sepsis Screening Result: No Definite Risk - Focused Exam Vital Signs: Vital Signs Temp Pulse Resp BP BP Pulse Ox 06/09/20 08:11 145/91 H 06/09/20 04:00 98.2 F 75 16 123/80 96 06/09/20 00:00 98.1 F 78 16 131/78 97 - Problem List & Annotations (1) Asthma SNOMED Code(s): 625322468 Code(s): J45.909 - UNSPECIFIED ASTHMA, UNCOMPLICATED Status: Acute Current Visit: Yes (2) Palliative care status SNOMED Code(s): 703559978 Code(s): Z51.5 - ENCOUNTER FOR PALLIATIVE CARE Status: Acute Current Visit: Yes (3) Chest tube in place SNOMED Code(s): 144314917 Code(s): Z96.89 - PRESENCE OF OTHER SPECIFIED FUNCTIONAL IMPLANTS Status: Acute Current Visit: Yes (4) COPD (chronic obstructive pulmonary disease) SNOMED Code(s): 71158593 Code(s): J44.9 - CHRONIC OBSTRUCTIVE PULMONARY DISEASE, UNSPECIFIED Status: Acute Current Visit: No Qualifiers: COPD type: unspecified COPD Qualified Code(s): J44.9 - Chronic obstructive pulmonary disease, unspecified Annotation/Comment:: Continue management of COPD w Pulmonary Fibrosis (5) Pneumothorax SNOMED Code(s): 12316102 Code(s): J93.9 - PNEUMOTHORAX, UNSPECIFIED Status: Acute Current Visit: No Annotation/Comment:: Post op management of chest tube - Problem List Review Problem List Initiated/Reviewed/Updated: Yes - My Orders Last 24 Hours: My Active Orders 06/08/20 17:23 Albuterol [Ventolin HFA] 0 gm INH Q4H PRN 06/08/20 17:24 RT Post Treatment Assessment [RC] .PRN 06/08/20 18:00 Enoxaparin [Lovenox] 40 mg SUBCUT Q24H 06/08/20 18:07 Up With Assistance [RC] .PRN SCD [Sequential Compression Device] [OM.PC] Routine 06/08/20 20:30 Levothyroxine 200 mcg PO MoTuWeThFrSa@1730 Levothyroxine 25 mcg PO MoTuWeThFrSa@1730 06/08/20 21:00 Budesonide/Formoterol [Symbicort 160-4.5 MCG] 0 puff INH BID 06/09/20 08:31 Admission Status [Patient Status] [ADT] Routine 06/09/20 08:33 Ambulate [RC] PER UNIT ROUTINE 06/09/20 09:00 Diltiazem [Dilacor XR] 240 mg PO DAILY Losartan [Cozaar] 100 mg PO DAILY Sertraline [Zoloft] 200 mg PO DAILY Tiotropium [Spiriva HandiHaler] 18 mcg INH DAILY Vit C/E/Zn/Coppr/Lutein/Zeaxan [Preservision Areds 2 Softgel] 1 cap PO DAILY - Assessment Assessment:: Left Spontaneous Pneumothorax - expanded with CT but still appears to be air leak - Plan Plan:: Will leave CT in and open to Heimlich Valve Repeat CXR tomorrow Change vitals to every shift, DC I's and O's and daily weights. Up in chair and ambulating.
[2020-06-09] MEDS ORDERED: Non-Formulary Medication 1 Each (Vit C/E/Zn/Coppr/Lutein/Zeaxan [Preservision Areds 2 Soft PO SCH (09:00)
--- NOTE | 2020-06-09 10:28 | CR ---
INDICATION: Short of breath. Chest tube placed. CHEST, TWO VIEWS: PA and lateral views of the chest 06/09/20 were compared with 06/08/20 and 05/11/16. There is again visualized a left chest tube with continued reexpansion of the left lung. No evidence of the previous pneumothorax is identified on the left. Heavy markings are again noted compatible with fibrosis in the lower lung avendaño and right mid lung field. The heart remains normal in size and shape. The aorta is mildly tortuous with calcification in the arch and descending portion. Decreased bone density compatible with osteoporosis is noted with bridging hyperostotic changes in the upper middle and to a lesser extent middle thoracic spine. Somewhat flattened diaphragm leaves and hyperaeration suggests COPD, along with interdigitation of the diaphragm leaves. There is some blunting of the posterior sulcus on the left, which could be due to minimal pleural effusion and/or fibrosis. It was suggested some fibrosis on a previous PA and lateral chest x-ray, in that area, dated 12/16/13. IMPRESSION: Satisfactory appearance post-left chest tube placement for pneumothorax. MTDD
[2020-06-09] MEDS: Enoxaparin 40 MG/0.4 ML Syringe SUBCUT SCH (17:26)
[2020-06-09] MEDS ORDERED: Levothyroxine 25 MCG Tab PO SCH (17:30)
[2020-06-10] MEDS: Albuterol 8 GM Inhaler INH PRN (06:58)
--- NOTE | 2020-06-10 07:47 | PCM.PN ---
- General Info Date of Service: 06/10/20 Functional Status: Reports: Pain Controlled - Review of Systems General: Reports: Other (Left sided chest pain from CT much better). Denies: Fever, Malaise, Chills Pulmonary: Reports: Other (Has increased Asthma symptoms this AM with some congestion and slight SOB) Gastrointestinal: Reports: No Symptoms - Patient Data Vitals - Most Recent: Last Vital Signs Temp 96.8 F L 06/10/20 00:00 Pulse 79 06/10/20 00:00 Resp 19 06/10/20 00:00 BP 142/79 H 06/10/20 00:00 Pulse Ox 94 L 06/10/20 00:00 Weight - Most Recent: 176 lb Med Orders - Current: Current Medications Hydrocodone Bitart/Acetaminophen ([place] 325-5 Mg) 1 tab PO Q6H PRN PRN Reason: Pain Last Admin: 06/09/20 20:41 Dose: 1 tab Documented by: Albuterol (Ventolin Hfa) 0 gm INH Q4H PRN PRN Reason: Shortness of Breath Last Admin: 06/10/20 06:58 Dose: 2 puff Documented by: Diltiazem HCl (Dilacor Xr) 240 mg PO DAILY [facility] Last Admin: 06/09/20 08:11 Dose: 240 mg Documented by: Enoxaparin Sodium (Lovenox) 40 mg SUBCUT Q24H [facility] Last Admin: 06/09/20 17:26 Dose: 40 mg Documented by: Levothyroxine Sodium (Levothyroxine) 25 mcg PO MoTuWeThFrSa@1730 [facility] Last Admin: 06/09/20 17:26 Dose: 25 mcg Documented by: Levothyroxine Sodium (Levothyroxine) 200 mcg PO MoTuWeThFrSa@1730 [facility] Last Admin: 06/09/20 17:26 Dose: 200 mcg Documented by: Losartan Potassium (Cozaar) 100 mg PO DAILY [facility] Last Admin: 06/09/20 08:11 Dose: 100 mg Documented by: Budesonide/Formoterol ( Symbicort) 160-4.5 Mcg Own Med 0 puff INH BID [facility] Last Admin: 06/09/20 20:37 Dose: 2 puff Documented by: Ondansetron HCl (Zofran Odt) 4 mg PO Q6H PRN PRN Reason: Nausea/Vomiting Sertraline HCl (Zoloft) 200 mg PO DAILY [facility] Last Admin: 06/09/20 08:12 Dose: 200 mg Documented by: Sodium Chloride (Saline Flush) 10 ml FLUSH ASDIRECTED PRN PRN Reason: Keep Vein Open Tiotropium [place] (Spiriva Handihaler) 18 mcg INH DAILY [facility] Last Admin: 06/09/20 08:10 Dose: 18 mcg Documented by: Discontinued Medications Aspirin (Aspirin) 324 mg PO ONETIME ONE Stop: 06/08/20 15:58 Last Admin: 06/08/20 18:19 Dose: 324 mg Documented by: Aspirin (Aspirin) Confirm Administered Dose 324 mg .ROUTE .STK-MED ONE Stop: 06/08/20 18:18 Last Admin: 06/08/20 18:25 Dose: Not Given Documented by: Levothyroxine Sodium (Levothyroxine) 25 mcg PO MoTuWeThFrSa@1730 [facility] Last Admin: 06/08/20 20:39 Dose: 25 mcg Documented by: Levothyroxine Sodium (Levothyroxine) 200 mcg PO MoTuWeThFrSa@1730 [facility] Last Admin: 06/08/20 20:39 Dose: 200 mcg Documented by: Non-Formulary Medication (Vit C/E/Zn/Coppr/Lutein/Zeaxan [Preservision Areds 2 Softgel]) 1 cap PO DAILY [facility] - Exam Lungs: Normal Respiratory Effort, Other (Heimlich Valve still moving with deep breathing suggestive that air leak persists) Sepsis Event Note - Evaluation Sepsis Screening Result: No Definite Risk - Focused Exam Vital Signs: Vital Signs Temp Pulse Resp BP Pulse Ox 06/10/20 00:00 96.8 F L 79 19 142/79 H 94 L - Problem List Review Problem List Initiated/Reviewed/Updated: Yes - Assessment Assessment:: Left Spontaneous Pneumothorax - expanded with CT but still appears to be air leak - Plan Plan:: Will leave CT in and open to Heimlich Valve Will receive treatment for Asthma exacerbation
--- NOTE | 2020-06-10 08:11 | PCM.PN ---
- General Info Date of Service: 06/10/20 Admission Dx/Problem (Free Text): Patient states she's having some chest tightness and will wheezing which is consistent with her asthma. She says he other shortness of breath and pain on the left side of her chest is better. She thinks she is having an asthma exacerbation. She says she is uses prednisone it gets better. Denies fevers or chills. - Patient Data Vitals - Most Recent: Last Vital Signs Temp 96.8 F L 06/10/20 00:00 Pulse 79 06/10/20 00:00 Resp 19 06/10/20 00:00 BP 142/79 H 06/10/20 00:00 Pulse Ox 94 L 06/10/20 00:00 Weight - Most Recent: 176 lb Med Orders - Current: Current Medications Hydrocodone Bitart/Acetaminophen ([place] 325-5 Mg) 1 tab PO Q6H PRN PRN Reason: Pain Last Admin: 06/09/20 20:41 Dose: 1 tab Documented by: Albuterol (Ventolin Hfa) 0 gm INH Q4H PRN PRN Reason: Shortness of Breath Last Admin: 06/10/20 06:58 Dose: 2 puff Documented by: Diltiazem HCl (Dilacor Xr) 240 mg PO DAILY [facility] Last Admin: 06/09/20 08:11 Dose: 240 mg Documented by: Enoxaparin Sodium (Lovenox) 40 mg SUBCUT Q24H [facility] Last Admin: 06/09/20 17:26 Dose: 40 mg Documented by: Levothyroxine Sodium (Levothyroxine) 25 mcg PO MoTuWeThFrSa@1730 [facility] Last Admin: 06/09/20 17:26 Dose: 25 mcg Documented by: Levothyroxine Sodium (Levothyroxine) 200 mcg PO MoTuWeThFrSa@1730 [facility] Last Admin: 06/09/20 17:26 Dose: 200 mcg Documented by: Losartan Potassium (Cozaar) 100 mg PO DAILY [facility] Last Admin: 06/09/20 08:11 Dose: 100 mg Documented by: Budesonide/Formoterol ( Symbicort) 160-4.5 Mcg Own Med 0 puff INH BID [facility] Last Admin: 06/09/20 20:37 Dose: 2 puff Documented by: Ondansetron HCl (Zofran Odt) 4 mg PO Q6H PRN PRN Reason: Nausea/Vomiting Prednisone (Prednisone) 40 mg PO DAILY [facility] Sertraline HCl (Zoloft) 200 mg PO DAILY [facility] Last Admin: 06/09/20 08:12 Dose: 200 mg Documented by: Sodium Chloride (Saline Flush) 10 ml FLUSH ASDIRECTED PRN PRN Reason: Keep Vein Open Tiotropium [place] (Spiriva Handihaler) 18 mcg INH DAILY [facility] Last Admin: 06/09/20 08:10 Dose: 18 mcg Documented by: Discontinued Medications Aspirin (Aspirin) 324 mg PO ONETIME ONE Stop: 06/08/20 15:58 Last Admin: 06/08/20 18:19 Dose: 324 mg Documented by: Aspirin (Aspirin) Confirm Administered Dose 324 mg .ROUTE .STK-MED ONE Stop: 06/08/20 18:18 Last Admin: 06/08/20 18:25 Dose: Not Given Documented by: Levothyroxine Sodium (Levothyroxine) 25 mcg PO MoTuWeThFrSa@1730 [facility] Last Admin: 06/08/20 20:39 Dose: 25 mcg Documented by: Levothyroxine Sodium (Levothyroxine) 200 mcg PO MoTuWeThFrSa@1730 [facility] Last Admin: 06/08/20 20:39 Dose: 200 mcg Documented by: Non-Formulary Medication (Vit C/E/Zn/Coppr/Lutein/Zeaxan [Preservision Areds 2 Softgel]) 1 cap PO DAILY [facility] - Exam General: Alert, Oriented Lungs: Clear to Auscultation, Normal Respiratory Effort, Other (Aeration bilateral lung avendaño. Chest tube in place on the left side). No: Crackles, Ra les, Rhonchi Sepsis Event Note - Evaluation Sepsis Screening Result: No Definite Risk - Focused Exam Vital Signs: Vital Signs Temp Pulse Resp BP Pulse Ox 06/10/20 00:00 96.8 F L 79 19 142/79 H 94 L - Problem List & Annotations (1) Asthma SNOMED Code(s): 015934178 Code(s): J45.909 - UNSPECIFIED ASTHMA, UNCOMPLICATED Status: Acute Current Visit: Yes (2) Palliative care status SNOMED Code(s): 902550974 Code(s): Z51.5 - ENCOUNTER FOR PALLIATIVE CARE Status: Acute Current Visit: Yes (3) Chest tube in place SNOMED Code(s): 360670624 Code(s): Z96.89 - PRESENCE OF OTHER SPECIFIED FUNCTIONAL IMPLANTS Status: Acute Current Visit: Yes (4) COPD (chronic obstructive pulmonary disease) SNOMED Code(s): 54429365 Code(s): J44.9 - CHRONIC OBSTRUCTIVE PULMONARY DISEASE, UNSPECIFIED Status: Acute Current Visit: No Qualifiers: COPD type: unspecified COPD Qualified Code(s): J44.9 - Chronic obstructive pulmonary disease, unspecified Annotation/Comment:: Continue management of COPD w Pulmonary Fibrosis (5) Pneumothorax SNOMED Code(s): 89477204 Code(s): J93.9 - PNEUMOTHORAX, UNSPECIFIED Status: Acute Current Visit: No Annotation/Comment:: Post op management of chest tube - Problem List Review Problem List Initiated/Reviewed/Updated: Yes - My Orders Last 24 Hours: My Active Orders 06/09/20 08:31 Admission Status [Patient Status] [ADT] Routine 06/09/20 08:33 Ambulate [RC] PER UNIT ROUTINE 06/09/20 09:00 Diltiazem [Dilacor XR] 240 mg PO DAILY Losartan [Cozaar] 100 mg PO DAILY Sertraline [Zoloft] 200 mg PO DAILY Tiotropium [Spiriva HandiHaler] 18 mcg INH DAILY 06/09/20 17:30 Levothyroxine 200 mcg PO [email or web address]@1730 Levothyroxine 25 mcg PO MoTuWeThFrSa@1730 06/10/20 07:44 CXR [Chest 2V] [CR] Routine 06/10/20 09:00 predniSONE 40 mg PO DAILY - Assessment Assessment:: Left Spontaneous Pneumothorax - expanded with CT but still appears to be air leak - Plan Plan:: Will leave CT in and open to Heimlich Valve Prednisone 40 mg a day for asthma. Chest x-ray to confirm that pneumothoraxes resolved. If the patient improves with her breathing for asthma consider discharge later today. If it doesn't she will remain here.
[2020-06-10] MEDS: FORMOTEROL INH SCH (08:36)
[2020-06-10] MEDS: BUDESONIDE INH SCH (08:36)
[2020-06-10] MEDS: Diltiazem 240 MG Cap.ER PO SCH (08:37)
[2020-06-10] MEDS: Losartan 100 MG Tab PO SCH (08:37)
[2020-06-10] MEDS: Tiotropium Inhaler 18 MCG Inhalation Powder Cap Kit of 5 INH SCH (08:38)
[2020-06-10 08:39] VITALS: BP 132/75
[2020-06-10] MEDS: Sertraline 100 MG Tab PO SCH (08:39)
[2020-06-10] MEDS ORDERED: predniSONE 20 MG Tab PO SCH (09:00)
--- NOTE | 2020-06-10 10:44 | CR ---
INDICATION: Pneumothorax - followup. CHEST, TWO VIEWS: PA and lateral views of the chest were obtained 06/10/20 and compared with 06/09/20 and 06/08/20, again revealing a chest tube in place on the left. No evidence of pneumothorax is seen with complete expansion of the lungs suggested. There is some minimal blunting of the left costophrenic angle which may represent some minimal fluid. Slightly less blunting of the posterior sulcus may be present suggesting a slight decrease. A new acute process was not identified. IMPRESSION: Lung appears to be remaining fully reexpanded post-left chest tube placement with suggestion of minimal residual pleural effusion. MTDD
[2020-06-10 12:44] VITALS: PULSE 83
--- NOTE | 2020-06-10 13:09 | PCM.DCSUM1 ---
Discharge Summary - Hospital Course Free Text/Narrative:: Hospital course-patient was admitted for pneumothorax with a chest tube. The next morning her valve was still moving so we kept her in. Repeated chest x-ray no signs of pneumothorax. Patient was eating and moving fine. Day of discharge. The bowel was still moving chest tube is in place. Patient had some chest burning consistent with her asthma. She started prednisone and I got better. Repeat chest x-ray showed a little effusion but no pneumothorax. She was seen by the surgeon as the previous described. She'll be discharged home on prednisone, chest tube and follow-up in 5 days with the surgeon. Brief History: This is a 74-year-old female patient who lives alone with COPD and asthma. She states she had this morning and she was very short of breath and air hungry. She had left lateral chest pain under her breast. She came to the ER was found to have a pneumothorax and had a chest tube placed by the surgeon. She feels much better now. She did have some sweating with this and vomited 2. She says she has a daily cough with whitish sputum all the time and has not changed. She denies fevers, chills, runny nose, sore throat, chest pain. She is had 2 previous pneumothorax there were spontaneous Diagnosis: Stroke: No - Discharge Data Discharge Date: 06/10/20 Discharge Disposition: Home, Self-Care 01 Condition: Good - Referral to Home Health Primary Care Physician: Barak Multani MD - Discharge Diagnosis/Problem(s) (1) Asthma SNOMED Code(s): 833779207 ICD Code: J45.909 - UNSPECIFIED ASTHMA, UNCOMPLICATED Status: Acute Current Visit: Yes (2) Palliative care status SNOMED Code(s): 611245713 ICD Code: Z51.5 - ENCOUNTER FOR PALLIATIVE CARE Status: Acute Current Visit: Yes (3) Chest tube in place SNOMED Code(s): 901256788 ICD Code: Z96.89 - PRESENCE OF OTHER SPECIFIED FUNCTIONAL IMPLANTS Status: Acute Current Visit: Yes (4) COPD (chronic obstructive pulmonary disease) SNOMED Code(s): 36513456 ICD Code: J44.9 - CHRONIC OBSTRUCTIVE PULMONARY DISEASE, UNSPECIFIED Status: Acute Current Visit: No Problem Details: Continue management of COPD w Pulmonary Fibrosis Qualifiers: COPD type: unspecified COPD Qualified Code(s): J44.9 - Chronic obstructive pulmonary disease, unspecified (5) Pneumothorax SNOMED Code(s): 45910572 ICD Code: J93.9 - PNEUMOTHORAX, UNSPECIFIED Status: Acute Current Visit: No Problem Details: Post op management of chest tube - Patient Instructions Diet: Regular Diet as Tolerated Activity: As Tolerated Driving: May Drive Today Showering/Bathing: May Shower Notify Provider of: Fever, Increased Pain Other/Special Instructions: Recheck with Dr Brink in 5 das on Monday. - Discharge Plan Prescriptions/Med Rec: predniSONE 40 mg PO DAILY #6 tablet Home Medications: Home Meds Diltiazem [Cardizem CD] 240 mg PO DAILY 11/15/13 [History] Sertraline HCl [Zoloft] 200 mg PO DAILY 11/15/13 [History] Levothyroxine 225 mcg PO MOTUWETHFRSA 10/01/14 [History] Albuterol [Proair HFA] 2 puff INH Q4H PRN 05/10/16 [History] Budesonide/Formoterol [Symbicort 160-4.5 MCG] 2 puff INH BID 05/10/16 [History] Losartan [Cozaar] 100 mg PO DAILY 06/08/20 [History] Tiotropium [Spiriva HandiHaler] 18 mcg INH DAILY 06/08/20 [History] Vit C/E/Zn/Coppr/Lutein/Zeaxan [Preservision Areds 2 Softgel] 1 cap PO DAILY 06/08/20 [History] Levothyroxine 337.5 mcg PO TRAVIS 06/10/20 [History] predniSONE 40 mg PO DAILY #6 tablet 06/10/20 [Rx] Patient Handouts: Asthma, Adult, [id number], Chest Tube One-Way Valve Home Guide Forms: ED Department Discharge Referrals: Barak Multani MD [Primary Care Provider] - - Discharge Summary/Plan Comment DC Time >30 min.: No - Patient Data Vitals - Most Recent: Last Vital Signs Temp 98.1 F 06/10/20 08:00 Pulse 83 06/10/20 08:00 Resp 20 06/10/20 08:00 BP 132/75 06/10/20 08:37 Pulse Ox 95 06/10/20 08:00 Weight - Most Recent: 176 lb Med Orders - Current: Current Medications Hydrocodone Bitart/Acetaminophen ([place] 325-5 Mg) 1 tab PO Q6H PRN PRN Reason: Pain Last Admin: 06/09/20 20:41 Dose: 1 tab Documented by: Albuterol (Ventolin Hfa) 0 gm INH Q4H PRN PRN Reason: Shortness of Breath Last Admin: 06/10/20 06:58 Dose: 2 puff Documented by: Diltiazem HCl (Dilacor Xr) 240 mg PO DAILY [facility] Last Admin: 06/10/20 08:37 Dose: 240 mg Documented by: Enoxaparin Sodium (Lovenox) 40 mg SUBCUT Q24H [facility] Last Admin: 06/09/20 17:26 Dose: 40 mg Documented by: Levothyroxine Sodium (Levothyroxine) 25 mcg PO [email or web address] [facility] Last Admin: 06/09/20 17:26 Dose: 25 mcg Documented by: Levothyroxine Sodium (Levothyroxine) 200 mcg PO [email or web address] [facility] Last Admin: 06/09/20 17:26 Dose: 200 mcg Documented by: Losartan Potassium (Cozaar) 100 mg PO DAILY [facility] Last Admin: 06/10/20 08:37 Dose: 100 mg Documented by: Budesonide/Formoterol ( Symbicort) 160-4.5 Mcg Own Med 0 puff INH BID [facility] Last Admin: 06/10/20 08:36 Dose: 2 puff Documented by: Ondansetron HCl (Zofran Odt) 4 mg PO Q6H PRN PRN Reason: Nausea/Vomiting Prednisone (Prednisone) 40 mg PO DAILY [facility] Last Admin: 06/10/20 08:38 Dose: 40 mg Documented by: Sertraline HCl (Zoloft) 200 mg PO DAILY [facility] Last Admin: 06/10/20 08:39 Dose: 200 mg Documented by: Sodium Chloride (Saline Flush) 10 ml FLUSH ASDIRECTED PRN PRN Reason: Keep Vein Open Tiotropium [place] (Spiriva Handihaler) 18 mcg INH DAILY [facility] Last Admin: 06/10/20 08:38 Dose: 18 mcg Documented by: Discontinued Medications Aspirin (Aspirin) 324 mg PO ONETIME ONE Stop: 06/08/20 15:58 Last Admin: 06/08/20 18:19 Dose: 324 mg Documented by: Aspirin (Aspirin) Confirm Administered Dose 324 mg .ROUTE .STK-MED ONE Stop: 06/08/20 18:18 Last Admin: 06/08/20 18:25 Dose: Not Given Documented by: Levothyroxine Sodium (Levothyroxine) 25 mcg PO [email or web address] [facility] Last Admin: 06/08/20 20:39 Dose: 25 mcg Documented by: Levothyroxine Sodium (Levothyroxine) 200 mcg PO [email or web address] [facility] Last Admin: 06/08/20 20:39 Dose: 200 mcg Documented by: Non-Formulary Medication (Vit C/E/Zn/Coppr/Lutein/Zeaxan [Preservision Areds 2 Softgel]) 1 cap PO DAILY [facility]
== END 2020-06-10 13:25 | disposition home or self-care (01) | DRG 201 ==
LOC: FB.ED 13:04 → FB.MS 15:42 → OBSVTOIN 06-09 08:31
PROVIDERS: ADMIT Family Medicine; ATTEND Family Medicine
PROC: 0W9B30Z Drainage of Left Pleural Cavity with Drainage Device, Percutaneous Approach (ICD-10-PCS; principal; 2020-06-08)
DX: J93.9 Pneumothorax, unspecified (principal); J45.909 Unspecified asthma, uncomplicated; J93.83 Other pneumothorax; J93.82 Other air leak; E03.9 Hypothyroidism, unspecified; Z66 Do not resuscitate; I10 Essential (primary) hypertension; Z51.5 Encounter for palliative care; Z20.828 Contact with and (suspected) exposure to other viral communicable diseases; H35.30 Unspecified macular degeneration; H54.7 Unspecified visual loss; J84.10 Pulmonary fibrosis, unspecified; Z98.41 Cataract extraction status, right eye; Z98.890 Other specified postprocedural states; N39.3 Stress incontinence (female) (male); Z87.19 Personal history of other diseases of the digestive system; F32.9 Major depressive disorder, single episode, unspecified; Z90.12 Acquired absence of left breast and nipple; E89.0 Postprocedural hypothyroidism; Z96.89 Presence of other specified functional implants; Z85.3 Personal history of malignant neoplasm of breast; Z85.850 Personal history of malignant neoplasm of thyroid; Z88.8 Allergy status to other drugs, medicaments and biological substances; Z79.890 Hormone replacement therapy; Z79.899 Other long term (current) drug therapy; Z98.49 Cataract extraction status, unspecified eye; Z90.49 Acquired absence of other specified parts of digestive tract; Z90.710 Acquired absence of both cervix and uterus; Z98.42 Cataract extraction status, left eye
CPT/HCPCS: 32551; 71045; 71046; 80053; 82803; 83735; 84484; 85025; 93005; 96372; 99285-25; A9270-GY; G0378; J1650; J7512; U0002